=== PATIENT | female | born 1940 | race African-American/Black ===

== ENCOUNTER → 2020-07-05 | Outpatient (CLI) | payer OTHER ==
[~2020-07-05] MED LIST: ATOR20TA58 PO; FURO40TA4 PO; GABA-587 PO; GLYB5TAB3 PO; IPRA12.9 IH; METH500T7 PO; METO50TA6 PO; PANT20TA4 PO; POTA20PA30 PO; VALS160T3 PO
== END ==
LOC: LAB 13:10
PROVIDERS: ATTEND Nurse Anesthetist, Certified Registered
DX: Z01.812 Encounter for preprocedural laboratory examination (principal); Z20.828 Contact with and (suspected) exposure to other viral communicable diseases
CPT/HCPCS: U0003

== ENCOUNTER → 2020-07-08 | Day surgery (SDC) | payer OTHER ==
[~2020-07-08] MED LIST changes: +IPRATRPIUM/ALBUTEROL 0.5/2.5MG 3 ML NEBU. NEB PRN; +IV RINGERS SOLUTION,LACTATED 1,000 ML IV SCH; +LIDOCAINE 2% PF 5 ML VIAL. ONE; +METOPROLOL TART IMMED RELEASE 25 MG TABLET. PO ONE; +MIDAZOLAM HCL PF 2 MG/2 ML VIAL. IV ONE; +ONDANSETRON PF 4 MG/2 ML VIAL. IV PRN; +PROPOFOL 10,000 MCG/ML (20ML) VIAL IV ONE
[2020-07-08 12:14] VITALS: BP 155/78
--- NOTE | 2020-07-13 17:06 | PATHOLOGY ---
[facility] Accession Number: [id number] . 01 Material submitted: . PART A: colon - TRANSVERSE COLON POLYP. Modifiers: transverse PART B: cecum - CECAL POLYP PART C: small bowel - SMALL BOWEL BIOPSY/ DISTAL ILEUM PART D: colon - RANDOM COLON BIOPSY . 02 Diagnosis: A. Colon biopsy, transverse colon polyp: - Hyperplastic polyp. . B. Colon biopsies, cecal polyp: - Tubular adenoma. . C. Small bowel biopsies, distal ileum: - No significant pathologic abnormalities. . D. Colonic mucosa, random colon biopsies: - No significant pathologic abnormalities, with several focally hyperplastic mucosal-associated lymphoid aggregates. . (JPM:mml; 07/13/2020) [facility] [place] 07/13/2020 1617 Local . 02 Comment: Sections of the transverse colon polyp biopsy reveal a hyperplastic polyp. There are no adenomatous changes or evidence of malignancy. . Sections of the cecal polyp biopsy reveal a small tubular adenoma showing no high grade dysplasia or evidence of malignancy. . Sections of the distal ileum biopsy reveal segments of small intestine mucosa. Where best oriented, the mucosal villi show no sprue-like changes or significant inflammatory changes. . Sections of the random colon biopsy reveal multiple segments of colonic mucosa containing several, focally hyperplastic mucosal-associated lymphoid aggregates. There is no evidence of a chronic destructive colitis, lymphocytic colitis, or collagenous colitis. . (JPM:mml; 07/13/2020) . 02 Electronically signed: . Toby Hannon MD, Pathologist NPI- [id number] . 01 Gross description: . A. The specimen is received in formalin, labeled "Sharifa Jude, transverse". Received is a segment of pale lee soft tissue measuring 0.4 cm in maximum dimensions. The specimen is submitted entirely in cassette A1. . B. The specimen is received in formalin, labeled "Sharifa Roque, cecal polyp". Received are two segments of pale lee soft tissue ranging in size from 0.2 to 0.3 cm in maximum dimensions. The specimen is submitted entirely in cassette B1. . C. The specimen is received in formalin, labeled "Sharifa Roque, small bowel biopsy distal ileum". Received are four segments of pale lee soft tissue measuring 0.4 cm each in maximum dimensions. The specimen is submitted entirely in cassette C1. . D. The specimen is received in formalin, labeled "Sharifa Roque, random colon biopsy". Received are multiple segments of pale lee soft tissue ranging in size from 0.3 to 0.4 cm in maximum dimensions. The specimen is submitted entirely in cassette D1. ([facility]; 07/12/2020) QAC/QAC 07/12/2020 1223 Local . 02 Pathologist provided ICD-10: K63.5, D12.0 . 02 CPT . 533456, 915891, 364594, 231039 Specimen Comment: A courtesy copy of this report has been sent to [phone] Specimen Comment: [id number] Specimen Comment: Report sent to / DR CLEMENS Performed at: 01 [facility] [address], [place], [place] [id number] MD Gregorio Tobar MD Phone: [phone] Performed at: 02 [facility] [address] [place], [place] [id number] MD Toby Hannon MD Phone: [phone]
== END | disposition home or self-care (01) ==
LOC: SURG 09:55
PROVIDERS: ATTEND Internal Medicine Gastroenterology
DX: K52.9 Noninfective gastroenteritis and colitis, unspecified (principal); K63.5 Polyp of colon; K57.30 Diverticulosis of large intestine without perforation or abscess without bleeding; K64.0 First degree hemorrhoids; E11.9 Type 2 diabetes mellitus without complications; Z86.010 Personal history of colon polyps; Z79.899 Other long term (current) drug therapy; Z88.0 Allergy status to penicillin; Z88.2 Allergy status to sulfonamides
CPT/HCPCS: 45380; 82947; J2001; J2704; J7120

== ENCOUNTER → 2020-12-31 | Outpatient (CLI) | payer OTHER ==
[2020-07-08 12:14] VITALS: BP 155/78
[~2020-12-31] MED LIST changes: -IPRATRPIUM/ALBUTEROL 0.5/2.5MG 3 ML NEBU. NEB PRN; -IV RINGERS SOLUTION,LACTATED 1,000 ML IV SCH; -LIDOCAINE 2% PF 5 ML VIAL. ONE; +METH-559 PO; -METH500T7 PO; -METOPROLOL TART IMMED RELEASE 25 MG TABLET. PO ONE; -MIDAZOLAM HCL PF 2 MG/2 ML VIAL. IV ONE; -ONDANSETRON PF 4 MG/2 ML VIAL. IV PRN; -PROPOFOL 10,000 MCG/ML (20ML) VIAL IV ONE
[2020-12-31 10:33] LABS: BASO % 1 % (0-3); EOS # 0.1 x10^3/uL (0.0-0.7); EOS % 2 % (0-3); HEMATOCRIT 35.9 % (36.0-47.0); HEMOGLOBIN 11.7 g/dL (12.0-15.5); LYMPH # 2.3 x10^3/uL (1.0-4.8); LYMPH % 32 % (24-48); MEAN CORPUSCULAR HEMOGLOBIN 27 pg (25-35); MEAN CORPUSCULAR HGB CONC 33 g/dL (31-37); MEAN CORPUSCULAR VOLUME 82 fL (79-100); MONO # 0.6 x10^3/uL (0.0-1.1); MONO % 8 % (0-9); NEUT # 4.2 x10^3uL (1.8-7.7); NEUT % 58 % (31-73); PLATELET COUNT 254 x10^3/uL (140-400); RED BLOOD COUNT 4.39 x10^6/uL (3.50-5.40); RED CELL DISTRIBUTION WIDTH 13.9 % (11.5-14.5); WHITE BLOOD COUNT 7.3 x10^3/uL (4.0-11.0)
[2020-12-31 10:57] LABS: ALBUMIN 3.2 g/dL (3.4-5.0); ALBUMIN/GLOBULIN RATIO 0.7 (1.0-1.7); CALCIUM 9.1 mg/dL (8.5-10.1); CREATININE 1.5 mg/dL (0.6-1.0); GFR 40.6; POTASSIUM 3.8 mmol/L (3.5-5.1); TOTAL BILIRUBIN 0.3 mg/dL (0.2-1.0); TOTAL PROTEIN 7.6 g/dL (6.4-8.2)
[2020-12-31 15:29] LABS: THYROID STIM HORMONE (TSH) 1.895 uIU/mL (0.358-3.740)
== END ==
LOC: LAB 08:57
PROVIDERS: ATTEND Family Medicine
DX: R07.9 Chest pain, unspecified (principal)
CPT/HCPCS: 36415; 80053; 80061; 82550; 84443; 84484; 85025

== ENCOUNTER → 2021-01-19 | Outpatient (CLI) | payer OTHER ==
[2020-07-08 12:14] VITALS: BP 155/78
--- NOTE | 2021-01-23 13:03 | RAD ---
EXAM: 1. BILATERAL DIGITAL DIAGNOSTIC MAMMOGRAPHY. 2. RIGHT BREAST ULTRASOUND. HISTORY: Palpable focus right lateral breast. TECHNIQUE: Bilateral full field digital images were obtained in CC and MLO projections. Computer-aide d detection was applied. Sonography of the site of palpable concern was also performed. COMPARISON: 05/01/2019. COMPOSITION: B. There are scattered areas of fibroglandular density. FINDINGS: A skin marker is placed at the site of palpable concern laterally and slightly superiorly o n the right. Underlying this, there is no mammographic abnormality. On today's sonography, Elsewhere, there are scattered and vascular calcifications. There are no suspicious masses, microcalc ifications or architectural distortion. The parenchymal pattern is stable. BI-RADS CATEGORY 2: Benign. RECOMMENDATION: 1. Ongoing clinical follow-up of palpable foci. 2. Routine screening mammography in one year. If mammography demonstrates dense breast tissue (heterogenously dense or extremely dense, category C or D), which could hide abnormalities, and if other risk factors for breast cancer have been identifi ed, supplemental screening tests that may be suggested by the ordering physician may be of benefit. D ense breast tissue, in and of itself, is a relatively common condition. Therefore, this information i s not provided to cause undue concern, but rather to raise awareness and to promote discussion with t he referring physician regarding the presence of other risk factors, in addition to dense breast tiss ue. The results of this mammography examination is provided to the patient and referring physician. T he patient should contact their referring physician if any questions or concerns exist regarding this report. PQRS compliance statement - Patient information was entered into a reminder system with a target due date for the next mammogram. "Our facility is accredited by the [employer] Mammography Program." Electronically signed by: Dulce Diaz MD (01/23/2021 1:00 PM) [email or web address]
== END ==
LOC: MAMMO 13:51
PROVIDERS: ATTEND Family Medicine
DX: R92.1 Mammographic calcification found on diagnostic imaging of breast (principal)
CPT/HCPCS: 76641; 77066

== ENCOUNTER → 2021-05-04 | Outpatient (CLI) | payer OTHER ==
[2020-07-08 12:14] VITALS: BP 155/78
[2021-05-04 12:35] LABS: CALCIUM 8.7 mg/dL (8.5-10.1); CREATININE 1.4 mg/dL (0.6-1.0); GFR 43.9; PHOSPHORUS 3.2 mg/dL (2.6-4.7); POTASSIUM 4.1 mmol/L (3.5-5.1)
[2021-05-04 13:41] LABS: BACTERIA,URINE 0 /HPF (0-FEW); BILIRUBIN,URINE NEG (NEG); CLARITY,URINE CLEAR; COLOR,URINE YELLOW; GLUCOSE,URINE >=1000 mg/dL (NEG); NITRITE,URINE NEG (NEG); SQUAMOUS EPITHELIAL CELL,UR MOD /LPF; UROBILINOGEN,URINE 0.2 mg/dL (0.2 mg/dL)
[2021-05-05 13:09] LABS: MICROALB RD UR 39.9 ug/mL (Not Estab.)
[2021-05-05 14:26] LABS: CREATININE,RANDOM URINE 96.4 mg/dL (Not Establ.)
== END ==
LOC: LAB 11:34
PROVIDERS: ATTEND Internal Medicine Nephrology
DX: I12.9 Hypertensive chronic kidney disease with stage 1 through stage 4 chronic kidney disease, or unspecified chronic kidney disease (principal); E11.22 Type 2 diabetes mellitus with diabetic chronic kidney disease; N18.31 Chronic kidney disease, stage 3a; E11.65 Type 2 diabetes mellitus with hyperglycemia; I70.90 Unspecified atherosclerosis; E55.9 Vitamin D deficiency, unspecified; D64.9 Anemia, unspecified; E21.3 Hyperparathyroidism, unspecified; Z79.4 Long term (current) use of insulin; Z68.30 Body mass index [BMI] 30.0-30.9, adult
CPT/HCPCS: 80069; 81001; 82043; 82570; 84156

== ENCOUNTER → 2022-01-04 | Outpatient (CLI) | payer OTHER ==
[2020-07-08 12:14] VITALS: BP 155/78
[2022-01-04 12:15] LABS: CALCIUM 9.3 mg/dL (8.5-10.1); CREATININE 1.2 mg/dL (0.6-1.0); GFR 52.4; PHOSPHORUS 3.5 mg/dL (2.6-4.7); POTASSIUM 4.1 mmol/L (3.5-5.1)
== END ==
LOC: LAB 10:55
PROVIDERS: ATTEND Internal Medicine Nephrology
DX: I12.9 Hypertensive chronic kidney disease with stage 1 through stage 4 chronic kidney disease, or unspecified chronic kidney disease (principal); E11.22 Type 2 diabetes mellitus with diabetic chronic kidney disease; N18.31 Chronic kidney disease, stage 3a; E11.65 Type 2 diabetes mellitus with hyperglycemia; D64.9 Anemia, unspecified; I70.90 Unspecified atherosclerosis; E21.3 Hyperparathyroidism, unspecified; E55.9 Vitamin D deficiency, unspecified; Z79.4 Long term (current) use of insulin; Z68.30 Body mass index [BMI] 30.0-30.9, adult
CPT/HCPCS: 36415; 80069